=== PATIENT | female | born 1955 | race Caucasian/White ===

== ENCOUNTER 2020-05-01 15:21 | Outpatient (REF) | payer BC, SELFPAY ==
[2020-05-03 13:14] LABS: BV Int Neg Control Negative (Negative); BV Int Pos Control Positive (Positive)
== END 2020-05-01 15:22 | disposition home or self-care (01) ==
LOC: HO.LAB 15:21
PROVIDERS: PCP Internal Medicine; Referring Provider Internal Medicine; Visit Provider Obstetrics & Gynecology
DX: N95.0 Postmenopausal bleeding (principal); Z11.3 Encounter for screening for infections with a predominantly sexual mode of transmission
CPT/HCPCS: 58100; 87480; 87510; 87660; 88305; 88341; 88342; 88360

== ENCOUNTER → 2020-05-18 14:22 | Outpatient (BNVA) | payer BC, SELFPAY | PROVIDERS: Visit Provider Obstetrics & Gynecology | DX: Z76.89 Persons encountering health services in other specified circumstances (principal) ==

== ENCOUNTER → 2020-06-15 15:58 | Outpatient (BNVA) | payer BC, SELFPAY | PROVIDERS: PCP Internal Medicine; Visit Provider Obstetrics & Gynecology ==

== ENCOUNTER 2020-06-18 09:40 | Day surgery (SDC) | payer BC, SELFPAY ==
--- NOTE | 2020-06-17 11:53 | P.CONAN_ITS ---
Documented by User: Sharon Reilly 06/17/20 14:56 HPI - Anesthesia Eval Consult details Narrative: 64yo F for D&C Diagnostic Hysteroscopy myosure [facility]LY [facility] Past Medical History Medical History History of hysteroscopy PONV (postoperative nausea and vomiting) Postmenopausal bleeding Surgical History Surgical History History of appendectomy Hx of dilation and curettage Social History Social History Alcohol intake: current Alcohol intake frequency: holidays/special occasions only Alcohol type: wine Smoking Status: Never smoker Second Hand Smoke Exposure: No Sexual orientation: Straight/Heterosexual Gender identity: female Meds Allergies Allergy/AdvReac Type Severity Reaction Status Date / Time No Known Allergies Allergy Verified 06/18/20 10:00 [No Known Allergies*] Exam Exam Date and Time: June 17, 2020 1153 Height,Weight and Vital Signs: Height 5 ft 8 in Assessment and Plan Assessment Anesthesia Assessment: Chart Reviewed Documented by User: Shakila Galicia 06/18/20 15:18 [facility] Past Medical History Medical History History of hysteroscopy PONV (postoperative nausea and vomiting) Postmenopausal bleeding Family History Family history of problems with anesthesia: No Surgical History Surgical History History of appendectomy Hx of dilation and curettage History of Problems with Anesthesia: No Social History Social History Alcohol intake: current Alcohol intake frequency: holidays/special occasions only Alcohol type: wine Smoking Status: Never smoker Second Hand Smoke Exposure: No Sexual orientation: Straight/Heterosexual Gender identity: female Meds Allergies Allergy/AdvReac Type Severity Reaction Status Date / Time No Known Allergies Allergy Verified 06/18/20 10:00 [No Known Allergies*] Exam Height,Weight and Vital Signs: T 97.9 HR 67 RR 16 BP 120/64 SPO2 96% (RA) Airway Mallampati Class: II TM Dist: >3cm Neck ROM: Full Heart: RRR Lungs: CTAB Assessment and Plan Assessment Anesthesia Assessment: Anesthesia Plan Discussed and Chart Reviewed Final Anesthetic Review NPO: Yes ASA Class: II Final Preanesthetic Review: No Changes in Pt Med Stat, Meds/Allgs Chart Reviewed, Consent Obtained/Reviewed and Anes Risks/Benef Reviewed Patient Risk: Low Procedure Risk: Low Assessment/Block/Sedation in SS: Assess/Block/Sedation-SS Anesthetic Plan Anesthetic Plan: GA Disposition: Standard PACU
[2020-06-18 10:10] VITALS: BMI 28.8
[2020-06-18 10:12] VITALS: BP 120/64; PULSE 67; RESP 16; TEMP 36.6; O2SAT 96
--- NOTE | 2020-06-18 10:21 | MHC.SHP ---
Pre-Procedural Eval Section A The patient is an INPATIENT: No Changes since office visit: No Cold of Flu in the past 2 weeks, No New Medical Problems, No Changes in Medication and No Patient answered all questions The History & Physical has been completed within 30 days and I have reviewed it.: Yes Section B Chief Complaint: postmenopausal bleeding Allergies: Allergies Allergy/AdvReac Type Severity Reaction Status Date / Time No Known Allergies Allergy Verified 06/18/20 10:00 [No Known Allergies*] Plan I have reviewed the history and physical and performed a pertinent physical examination on my patient. No changes have occurred unless specified.
[2020-06-18] MEDS: Lactated Ringers 1,000 ML 100 ML IVCONT (10:37)
[2020-06-18] MEDS: Scopolamine 1.5 MG PATCH.TD.3 TRANSDERMA (11:55)
[2020-06-18 13:58] VITALS: BP 109/66; PULSE 72; RESP 16; TEMP 36.3; O2SAT 98
--- NOTE | 2020-06-18 13:59 | W.PM.OPN ---
Operative Note Operative Note Date of Service: 06/18/20 Narrative: Ms. Simmons is a 64 year old postmenopausal woman with postmenopausa bleeding. She presents today for hysteroscopy d&c for further evaluation after endometrial biopsy in the office showed atypical epithelium with the possibility of malignancy. Surgical Risks: The patient was informed of the risks and benefits of a hysteroscopy with dilation and curettage. Risks included but were not limited to bleeding, infection, injury to the vulva, vagina, or cervix, and uterine perforation with possible need for further surgery. The patient expressed understanding of the risks involved, all questions were answered, and the patient consented to the procedure. The patient was taken to the operating room where a time out was confirmed to confirm correct patient and correct procedure. Adequate general anesthesia was established. The patient was then positioned on the operating table in the dorsal lithotomy position with her legs supported using stirrups. All pressure points were padded and a warm blanket was placed to maintain control of core body temperature. The patient was then prepped and draped in the usual sterile fashion. A bimanual exam was performed and the uterus was found to be anteverted. A straight catheter was inserted into the bladder and 50mL of urine was obtained. A bivalve speculum was then inserted into the vagina. The anterior lip of the cervix was visualized and grasped using a single tooth tenaculum. The cervix was adequately dilated using Roque dilators for the introduction of the hysteroscope. The hysteroscope was introduced under direct visualization using normal saline solution as the distending media. The hysteroscope was advanced to the fundus and the entire uterine cavity was inspected. A mass, likely a polyp, was found to be filling the cavity. The polyp had an atypical appearance with what appeared to be fat within it. The Myosure device was advanced and curettage was performed until the polyp was removed. The hysteroscope was then removed and a sharp curetting was performed starting at the 12 o?clock position and rotating a total of 360 degrees in order to cover all surfaces. Endometrial tissue was obtained and was sent to pathology. Following the curetting, good hemostasis was noted. The single-tooth tenaculum was removed from the anterior lip of the cervix and hemostasis was also noted at the tenaculum puncture sites. The speculum was then removed from the vagina. At the end of the procedure, all needle, sponge, and instrument counts were noted to be correct x2. The patient was transferred to the recovery room in stable condition.
[2020-06-18 14:03] VITALS: BP 120/55; PULSE 63; RESP 16; O2SAT 97
[2020-06-18 14:08] VITALS: BP 121/57; PULSE 65; RESP 16; O2SAT 97
[2020-06-18 14:13] VITALS: BP 137/63; PULSE 67; RESP 16; O2SAT 97
[2020-06-18 14:26] VITALS: BP 120/59; PULSE 57; RESP 16; TEMP 36.3; O2SAT 97
== END 2020-06-18 14:58 | disposition home or self-care (01) ==
LOC: HO.SSS 09:40
PROVIDERS: PCP Internal Medicine; Visit Provider Obstetrics & Gynecology
PROC: 0UDB8ZX Extraction of Endometrium, Via Natural or Artificial Opening Endoscopic, Diagnostic (ICD-10-PCS; CPT 58558; principal; 2020-06-18 11:30)
DX: N95.0 Postmenopausal bleeding (principal); N84.0 Polyp of corpus uteri
CPT/HCPCS: 58558; 88305; J1100; J2250; J2405; J3010

== ENCOUNTER 2020-06-30 09:37 | Outpatient (REF) | payer BC, SELFPAY | END 2020-06-30 09:38 | disposition home or self-care (01) | LOC: HO.LAB 09:37 | PROVIDERS: Visit Provider Obstetrics & Gynecology | DX: N95.0 Postmenopausal bleeding (principal) | CPT/HCPCS: 57505; 88305 ==

== ENCOUNTER 2024-07-31 13:37 | Outpatient (REF) | payer BC, SELFPAY ==
--- OUTSIDE RECORDS SUMMARY | 2024-07-31 17:06 | XMS_ITS | Continuity of Care Document ---
Author Organization [facility], COLLEEN Johnson 3rd floor Address [address] [place] [address] Care Team Providers Care Review Coordinator Name Role Phone KOSTAS GARCÍA Primary Care Provider Assessment No assessment recorded. Plan of Treatment Reminders Order Date Submit Date Provider Last Modified By Organization Details Last Modified Time Details Appointments INJECTION ONLY 15 2024 08:30A M Jacki Lopez i, PA-C Not available Not available Not available INJECTION ONLY 15 2024 10:30A M Jacki Lopez i, PA-C Not available Not available Not available NEW PATIENT 15 2024 09:15A M Sammy Leyva PA-C Not available Not available Not available Lab None recorded. Referral None recorded. Procedures None recorded. Surgeries None recorded. Imaging None recorded. Medication Orders None recorded. Patient TargetsNo targets recorded. Patient InstructionsNo instructions recorded. Reason for Referral None Reported. Problems Name Problem SNOMED Code Status Onset Date Resolution Date Notes Provider Name and Address Organization Details Recorded Time Pain of right knee joint 3607127035009 00 Active 2023 Jacki Lopez i, PA-C [address], [place], [address], [facility] 4 13:40:13 Osteoarthri tis of right knee joint [id number] 00 Active 2023 Jacki Lopez i, PA-C [address], [place], [address], [facility] 4 08:49:30 Problem Notes None recorded. Procedures Surgical History Date Name Laterality Status Provider Name and Address Organization Details Recorded Time 07/26/2024 Sports Knee 4&1 completed Jacki Wilson PA-C [address], [place], [address], [facility] 07/25/2024 18:31:59 04/09/2024 Sports Knee 4&1 completed Jacki Lezama PA-C [address], [place], [address], [facility] 04/09/2024 08:48:56 Imaging Results None recorded. Procedure Notes None recorded. Medical Equipment None [...] t Available Vitals Date Recorded Body height Provider Name an d Address Organization Details Last Updated DateTime 07/26/2024 172.72 cm BENJAMIN PAT [facility] 07/26/2024 09:15:25 Social History Question Answer Notes LastModified by Organization D etails LastModified Time Which Of Your Hands Is Dominant? Right [email or web address] Information not available 04/08/2024 Sex: Unknown Functional Status None recorded. Mental Status None recorded. Family History Nothing Reported. Medical History Condition Response Arthritis Y Gynecological HistoryNo gynecological history recorded. Obstetrics History GPAL:G 0 P 0 0 0 0 Past Encounters Encounter ID Performer Location Encounter Start Date Encounter Closed Date Diagnosis/Indication Diagnosis SNOMED-CT Code Diagnosis ICD10 Code Diagnosis Note [id number] IVON Chan [address]rd [address] [place] [address] 07/26/2024 09:11:34 07/26/2024 12:16:38 Osteoarthritis of right knee joint [id number] 62514 M17.11 Health Concerns Section Related Observation LastModified by Organization Detai ls LastModified Time None Recorded Concern Status LastModified by Organization Details LastModified Time None Recorded Payers Encounter Date Sequence Insurance Name Policy Number Policy Willams Covered Member ID Willams Member ID Guarantor Name 07/26/2024 2 [place] [id number] Tootiedixie Simmons [id number] Tootie Simmons 07/26/2024 1 [place] [employer] Tootiedixie Simmons [id number] Tootie Troy Notes Date Note Type Note Provider Name and Address Organization Details Recorded Time 07/26/2024 text/html I am seeing the patient today [facility] the [facility] was available but who [...] Left Bilate ral}} knee reviewed today at [facility] demonstrates moderate medial compartment narrowing [...] and agrees with the plan. Speech recognition client representative software was used to create portions of this document. An attempt at proofreading has been made to minimize errors. Please call for corrections. Jacki Wilson PA-C [address] [facility] [address], [place], [address], [facility] 07/26/2024 12:16:35 OBGyn Episode No OBEpisode recorded.
[2024-08-06 14:40] LABS: HPV Genotype 16 Negative (Negative); HPV Genotype 18 Negative (Negative); HPV High Risk Negative (Negative)
== END 2024-07-31 13:38 | disposition home or self-care (01) ==
LOC: HO.LNP 13:37
PROVIDERS: Visit Provider Advanced Practice Midwife
DX: Z01.419 Encounter for gynecological examination (general) (routine) without abnormal findings (principal)
CPT/HCPCS: 87626; 88175

== ENCOUNTER 2024-07-31 13:37 | Outpatient (AMB) | payer BC, SELFPAY ==
--- NOTE | 2024-07-31 13:38 | MHC.OFFVIS ---
Vital Signs 07/31/24 13:39 Height 5 ft 8 in Weight 211 lb BMI 32.1 BP 110/72 Intake Visit Reasons: New patient/Annual Shift Manager: Shift Manager Present (Marilu) Allergies No Known Allergies [No Known Allergies*] Allergy (Verified 07/31/24 13:39) HPI Comments Details: She is a postmenopausal woman presenting for her new patient annual operating room surgical technician examination. She is doing well with no operating room surgical technician concerns. Currently occasionally sexually active. Denies any vaginal dryness or irritation. STI testing offered; she declined. Attempting to eat a healthy diet with calcium and vitamin D and stays active with exercise-walks 2mi/d. Last pap smear; 2016. Last mammogram; UTD at [facility], no records available. Colonoscopy is UTD. Denies any family history of breast, ovarian or colon cancer. [facility] Medical History (Updated 07/31/24 @ 14:05 by Alana Cameron CNM) Encounter for well woman exam with routine gynecological exam PONV (postoperative nausea and vomiting) Surgical History (Updated 07/31/24 @ 14:06 by Alana Cameron CNM) Hx of dilation and curettage History of hysteroscopy History of appendectomy Social History Alcohol intake: current Alcohol intake frequency: holidays/special occasions only Alcohol type: wine Second Hand Smoke Exposure: No Sexual orientation: Straight/Heterosexual Gender identity: Female Female Reproductive History Menstrual Age of Menarche: 14 Total pregnancies: 2 Full term: 2 Number of Living Children: 2 History of abnormal pap smear: No Review of Systems Const All systems reviewed & are unremarkable except as noted in HPI and below Reports as per HPI Eyes Reports no additional complaints ENT Reports no additional complaints Card Reports no additional complaints Resp Reports no additional complaints GI Reports as per HPI and Reports no additional complaints Reports as per HPI Musc Reports no additional complaints Skin/Breast Reports as per HPI Neuro Reports no additional complaints Psych Reports no additional complaints Endo Reports no additional complaints Abhilash/Lymph Reports no additional complaints Aller/Immun Reports no additional complaints Physical Exam Vital Signs: Last Vital Signs BP 110/72 07/31/24 13:39 BMI result Body Mass Index 32.1 Const General: cooperative, healthy appearing, no acute distress, well developed and alert Orientation/consciousness: patient oriented x3 HEENT Head: Yes normal to inspection Eyes General: appearance normal, both eyes and all related structures Neck Neck: Yes normal visual inspection Thyroid: Thyroid normal Chest Chest palpation & inspection: normal inspection of the chest and other (no puckering, dimpling, peau de orange, retraction, discharge, masses) Breast/axilla inspection: normal inspection of the breasts Breast/axilla palpation: normal palpation of the breasts Resp Effort & Inspection: normal respiratory effort GI Inspection: Yes normal to inspection Palpation (GI): Soft to palpation Rectal Exam - Female: deferred General: Yes bladder normal to palpation and Yes Bimanual renal exam abnormal External Female Exam: normal external appearance and normal appearance of the urethra Speculum Exam - Vagina: normal palpation and vagina atrophic Speculum Exam - Cervix: normal appearance of the cervix and normal palpation Bimanual exam- vagina & uterus: normal bimanual exam, normal palpation, uterine size normal, bladder normal to palpation, normal palpation and non-tender Bimanual Exam- Adnexa, other: no masses Skin General skin exam: no rashes or lesions noted Rashes: no rashes Neuro General: patient oriented x3 Cognition (Neuro): normal cognition Extrem General: Yes normal to inspection Psych Attitude: cooperative Thought process: Normal thought process present Assessment & Plan Assessment & Plan (1) Encounter for well woman exam with routine gynecological exam: Code(s): Z01.419 - Encounter for gynecological examination (general) (routine) without abnormal findings Category: Medical Plan Discussed: Current recommendations for pap smears per ASCCP guidelines. Pap obtained. Breast awareness, periodic self breast exams and yearly mammogram. Maintain a healthy lifestyle, well balanced diet including Calcium 1,200 mg and Vitamin D 600 IU daily, and routine exercise. Contact the office with any postmenopausal bleeding. Patient verbalizes understanding and agrees to the plan of care. She was given opportunity to ask questions and all questions were answered to the best of my ability. RTO in 1 year for annual operating room surgical technician exam. This note is constructed using voice recognition software. While every effort has been made to ensure accuracy, tanning wheel filler errors may have been included. Coding Level of Care Code Est Pt Prev Care >65y(70780) Diagnoses Encounter for well woman exam with routine gynecological exam Z01.419
[2024-07-31 13:39] VITALS: BP 110/72; BMI 32.1
--- OUTSIDE RECORDS SUMMARY | 2024-07-31 16:14 | XMS_ITS | Data Portability ---
Author Organization [facility], [facility] Address [address] [place] [address] Care Team Providers Care Practical Nursing Faculty Name Role Phone KOSATS GARCÍA Primary Care Provider Assessment No assessment recorded. Plan of Treatment Reminders Order Date Submit Date Provider Last Modified By Organization Details Last Modified Time Details Appointments INJECTIO N ONLY 15 2024 08:30A M Jacki Lopez i, PA-C Not available Not available Not available INJECTIO N ONLY 15 2024 10:30A M Jacki Lopez i, PA-C Not available Not available Not available NEW PATIENT 15 2024 09:15A M Sammy Leyva PA-C Not available Not available Not available Lab None recorded . Referral None recorded . Procedures None recorded . Surgeries None recorded . Imaging XR, knee, 4 or more view - room 101 right knee 2023 [facility] [address], [address], [place], [address], 04/29/2024 07:47:50 Medication Orders None recorded . Patient TargetsNo targets recorded. Patient InstructionsNo instructions recorded. Reason for Referral None Reported. Results Created Date Observation Date Name Description Value Unit Range Abnormal Flag Note LastModifiedBy Organization Detail LastModifiedTime 04/09/20 24 04/09/2024 XR, knee, 4 or more view http:/ [email or web address] ?Encry pted=s hAaTro YD8dLq bEUv6g %2BXZw aYqtaq 0bqfl% 2Fg9IQ a4ajBk vP9nXo QUaueC m3YtLR FvZlgJ JJ8mAn HZtai3 2m2515 AC0Kqa HWAWKO hKiQtr MwF INTERFACE [facility] [address], [place], [address], 04/09/2024 08:36:01 04/09/20 24 04/09/2024 XR, knee, 4 or more view [email or web address] ?Encry pted=s hAaTro YD8dLq bEUv6g %2BXZw aYqtaq 0bqfl% 2Fg9IQ a4ajBk vP9nXo QUaueC m3YtLR FvZlgJ JJ8mAn HZtai3 0l8295 AC0Kqa HWAWKO hKiQtr MwF INTERFACE [facility] [address], [place], [address], 04/09/2024 08:36:03 Result Notes None recorded. Problems Name Problem SNOMED Code Status Onset Date Resolution Date Notes Provider Name and Address Organization Details Recorded Time Pain of right knee joint 9301127175873 00 Active 2023 Jacki Lopez i, PA-C [address], [facility] [place], [address], [facility] 4 13:40:13 Osteoarthri tis of right knee joint 2906586786919 00 Active 2023 Jacki Lopez i, PA-C [address], [place], [address], [facility] 08:49:30 Problem Notes None recorded. Procedures Surgical History Date Name Laterality Status Provider Name and Address Organization Details Recorded Time 07/26/2024 Sports Knee 4&1 completed Jacki Wilson PA-C [address], [place], [address], [facility] 07/25/2024 18:31:59 04/09/2024 Sports Knee 4&1 completed Jacki Lezama PA-C [address], [place], [address], [facility] 04/09/2024 08:48:56 Imaging Results Imaging Date Name Status LastModified by Organiz ation Details LastModified Time 04/09/2024 XR, knee, 4 or more view completed INTERFACE [facility] [address], [place], [address], 04/09/2024 08:36:01 04/09/2024 XR, knee, 4 or more view completed INTERFACE [facility] [address], [place], [address], 04/09/2024 08:36:03 Procedure Notes None recorded. Medical Equipment None Reported. Allergies No known drug allergies Medications Name Sig Start Date Stop Date Status Note LastModified by Organization Details LastModified Time valacyclovir 500 mg tablet TAKE 4 TABLETS BY MOUTH AT ONSET OF SYMPTOMS DIRECTED active Not Available Not Available No t Available amoxicillin 875 mg tablet TAKE 1 TABLET BY MOUTH TWICE A DAY FOR 7 DAYS active Not Available Not Available No t Available cephalexin 500 mg capsule TAKE 1 CAPSULE BY MOUTH TWICE A DAY FOR 7 DAYS active Not Available Not Available No t Available acyclovir 5 % topical ointment APPLY A THIN LAYER TO LESIONS 6 TIMES A DAY FOR 7 DAYS active Not Available Not Available No t Available nystatin 100,000 unit/gram topical cream APPLY SPARINGLY TO CORNERS OF MOUTH 2-4 TIMES A DAY, STOP ONCE BETTER & DESIRED RESULTS ACHIEVED active Not Available Not Available No t Available Vitals Date Recorded Body height Body mass index (BMI) Body weight Provider Name and Address Organization Details Last Updated DateTime 04/09/2024 172.72 cm 28.9 kg/m2 37191.55 g Benjamin Lewis [facility] 04/09/2024 08:25:56 Date Recorded Body height Provider Name an d Address Organization Details Last Updated DateTime 07/26/2024 172.72 cm BENJAMIN PAT [facility] 07/26/2024 09:15:25 Social History Question Answer Notes LastModified by Organization D etails LastModified Time Which Of Your Hands Is Dominant? Right chidi Information not available 04/08/2024 Sex: Unknown Functional Status None recorded. Mental Status None recorded. Family History Nothing Reported. Medical History Condition Response Arthritis Y Gynecological HistoryNo gynecological history recorded. Obstetrics History GPAL:G 0 P 0 0 0 0 Past Encounters Encounter ID Performer Location Encounter Start Date Encounter Closed Date Diagnosis/Indication Diagnosis SNOMED-CT Code Diagnosis ICD10 Code Diagnosis Note [id number] Jacki Lezama PA-C [facility] [address] [place] [address] 04/09/2024 08:16:47 04/29/2024 07:47:50 Pain of right knee joint 6875932944 24683 M25.561 Osteoarthr itis of right knee joint 0402350397 75463 M17.11 [id number] Jacki Wilson PA-C [facility] [address] [place] [address] 07/26/2024 09:11:34 07/26/2024 12:16:38 Osteoarthritis of right knee joint 3120963949 47163 M17.11 Health Concerns Section Related Observation LastModified by Organization Detai ls LastModified Time None Recorded Concern Status LastModified by Organization Details LastModified Time None Recorded Advance Directives Directive None Recorded Payers Encounter Date Sequence Insurance Name Policy Number Policy Willams Covered Member ID Willams Member ID Guarantor Name 04/09/2024 2 [place] [id number] Tootie Simmons [id number] Tootie Simmons 04/09/2024 1 [place] Tootie Simmons [id number] Tootie Simmons 07/26/2024 2 [place] [id number] Tootie Simmons [id number] Tootie Simmons 07/26/2024 1 [place] Tootie Simmons [id number] Tootie Simmons Notes Date Note Type Note Provider Name and Address Organization Details Recorded Time 04/09/2024 text/html I am seeing the patient today under the supervision of {{[employer]}} who was available but who did not see the patient. HPI: 68-year-old female patient presents today for right knee pain that began in October after she was mowing her lawn and stepped into a hole and fell. Localizes pain mostly to the anterior aspect of the knee. Denies mechanical catching or locking symptoms. Pain is exacerbated with prolonged walking, squatting or kneeling, getting up from a seated position or doing yard work. Pain is more intermittent, described as an achy sensation. She has tried ice and heat with minimal relief. Past family, social history and review of systems has been reviewed, updated and is located in the patient? s chart. X-RAYS: 4v X-rays of the {{Right* Left Bilate ral}} knee were ordered, obtained and reviewed today at [facility] demonstrates moderate medial compartment narrowing bilaterally, Lindquist view demonstrates mild lateral compartment narrowing bilaterally. Moderate patellofemoral space narrowing bilaterally with early osteophyte formation. IMPRESSION: {{Right* Left Bilate ral}} knee osteoarthritis, possible underlying degenerative meniscus tear PLAN: Findings reviewed. Discussed conservative treatment is appropriate at option. Discussed this possible she has generative meniscus tear, however, she has no swelling or mechanical symptoms at this time. She elected to proceed with right knee cortisone injection today. She did have some hives after previous cortisone injection, recommended she preventatively take Benadryl today. Will follow-up in 3 months for recheck. Discussed in the future it is possible she may require total knee arthroplasty. All of her concerns were addressed and she understands and agrees with the plan. Speech recognition cafeteria cashier software was used to create portions of this document. An attempt at proofreading has been made to minimize errors. Please call for corrections. Jacki Lezama PA-C [address] [facility] [address], [place], [address], [facility] 04/09/2024 08:50:06 07/26/2024 text/html I am seeing the patient today under the supervision of {{[employer]#}} who was available but who did not see the patient. CLINICAL UPDATE: 68-year-old female patient presents today for right knee recheck. Last cortisone injection 04/09/24 provided great relief for about 2.5 months. Pain is most bothersome with exercising, stairs, getting in and out of the car. Pain localized to anterior aspect of the knee. Denies catching or locking. HPI: Presented 04/09/24 with right knee pain that began in October after she was mowing her lawn and stepped into a hole and fell. Localizes pain mostly to the anterior aspect of the knee. Denies mechanical catching or locking symptoms. Pain is exacerbated with prolonged walking, squatting or kneeling, getting up from a seated position or doing yard work. Pain is more intermittent, described as an achy sensation. She has tried ice and heat with minimal relief. Past family, social history and review of systems has been reviewed, updated and is located in the patient? s chart. X-RAYS: Previous 4v X-rays of the {{Right* Left Bilate ral}} knee reviewed today at [facility] demonstrates moderate medial compartment narrowing bilaterally, Lindquist view demonstrates mild lateral compartment narrowing bilaterally. Moderate patellofemoral space narrowing bilaterally with early osteophyte formation. IMPRESSION: {{Right* Left Bilate ral}} knee patellofemoral osteoarthritis, possible underlying degenerative meniscus tear PLAN: Findings reviewed. Patient has tried ice and heat, cortisone injection. Discussed MRI imaging, however, elected to hold off given her pain is more anterior in nature, no mechanical symptoms. She elected to proceed with repeat right knee cortisone injection. I will submit for pre-approval for physical rotation. Follow-up in 3 months for recheck and ongoing treatment discussion. She did have some hives after previous cortisone injection, recommended she preventatively take Benadryl today. All of her concerns were addressed and she understands and agrees with the plan. Speech recognition cafeteria cashier software was used to create portions of this document. An attempt at proofreading has been made to minimize errors. Please call for corrections. Jacki Wilson PA-C [address], [place], [address], [facility] 07/26/2024 12:16:35 OBGyn Episode No OBEpisode recorded.
== END 2024-07-31 14:14 | disposition home or self-care (01) ==
LOC: HO.HWS 13:37
PROVIDERS: Visit Provider Advanced Practice Midwife
DX: Z01.419 Encounter for gynecological examination (general) (routine) without abnormal findings (principal)
CPT/HCPCS: 99397; 99459